=== PATIENT | male | born 1950 | race Caucasian/White ===

== ENCOUNTER 2019-07-31 11:53 | Observation (INO) | payer BC, OTHER ==
[2019-07-31] MEDS ORDERED: morphine CARPU-JECT 4 MG/1 ML DISP.SYRIN IVPUSH ONE (12:41)
[2019-07-31] MEDS ORDERED: morphine SULFATE 4 MG/ML VIAL ONE (13:05)
[2019-07-31 13:08] LABS: BASO % 1.3 % (0-2.0); EOS % 0.4 % (0-4.5); HEMATOCRIT 47.8 % (35.4-49); HEMOGLOBIN 16.4 GM/dL (11.7-16.9); LYMPH % 20.3 % (8-40); MCH 31.5 pg (25.7-33.7); MCHC 34.3 g/dl (32.0-35.9); MEAN CELL VOLUME 91.8 fl (80-96); MEAN PLT VOLUME 8.9 fl (7.5-11.1); MONO % 7.1 % (3.8-10.2); NEUT % 70.9 % (42.8-82.8); PLATELET COUNT 255 K/MM3 (134-434); RDW 13.8 % (11.9-15.9)
--- NOTE | 2019-07-31 13:08 | PDOC ---
History of Present Illness - General Chief Complaint: Pain Stated Complaint: RT LEG PAIN Time Seen by Provider: 07/31/19 12:13 History Source: Patient - History of Present Illness Occurred: reports: last week Severity: Yes: severe Lower Extremity Pain Location: right: leg Past History - Past Medical History Allergies/Adverse Reactions: Allergies Allergy/AdvReac Type Severity Reaction Status Date / Time No Known Allergies Allergy Verified 07/31/19 11:59 Home Medications: Ambulatory Orders Aspirin [ASA -] 81 mg PO DAILY 05/08/16 Anemia: No Asthma: Yes Cancer: Yes (LYMPHOMA) Cardiac Disorders: No CVA: No COPD: No CHF: No Dementia: No Diabetes: No GI Disorders: No Disorders: No HTN: No Hypercholesterolemia: No Kidney Stones: No Liver Disease: No Seizures: No Thyroid Disease: No - Surgical History Abdominal Surgery: Yes (HERNIA) GI Surgery: Yes (INTESTINE SX A BABY) - Reproductive History Testicular Surgery: No - Psycho Social/Smoking Cessation Hx Smoking History: Current every day smoker Have you smoked in the past 12 months: Yes Number of Cigarettes Smoked Daily: 20 Information on smoking cessation initiated: Yes 'Breaking Loose' booklet given: 05/08/16 Hx Alcohol Use: Yes Drug/Substance Use Hx: No Substance Use Type: Alcohol Hx Substance Use Treatment: Yes Review of Systems - Review of Systems Constitutional: No: Chills, Fever Respiratory: No: Shortness of Breath Cardiac (ROS): No: Chest Pain, Palpitations *Physical Exam - Vital Signs Last Vital Signs Temp Pulse Resp BP Pulse Ox 98.2 F 65 16 105/77 98 07/31/19 11:59 07/31/19 11:59 07/31/19 11:59 07/31/19 11:59 07/31/19 11:59 - Physical Exam Comments: 07/31/19 13:08 well nilay elderly male, ambulating w/ cane into ED General Appearance: Yes: Appropriately Dressed, Mild Distress HEENT: positive: Normal Voice Neck: positive: Supple Respiratory/Chest: positive: Lungs Clear, Normal Breath Sounds. negative: Respiratory Distress Cardiovascular: positive: Regular Rate, S1, S2 Extremity: positive: Other (RLE slightly cold to touch vs LLE, unable to palpate pedal pulses b/l, no ttp, no erythema, no swelling). negative: Tender, Swelling Integumentary: positive: Dry, Warm Neurologic: positive: Fully Oriented, Alert, Normal Mood/Affect ED Treatment Course - LABORATORY CBC & Chemistry Diagram: 07/31/19 12:55 07/31/19 12:55 - RADIOLOGY Radiology Studies Ordered: Category Date Time Status DUPLEX ART. LOWER COMPL US [US] Stat Ultrasound 07/31/19 12:41 Ordered DUPLEX VASCUL US-1 LEG [US] Stat Ultrasound 07/31/19 12:41 Ordered Medical Decision Making - Medical Decision Making 07/31/19 12:48 68-year-old male, ETOH abuse, tx for lymphoma remotely, PAD, s/p multiple angioplasties to b/l LE (b/l angioplasty~20 years ago in [employer], LLE angioplasty in 2010 at [facility]), on asa and plavix, here with severe right leg pain that started 1 week ago. States pain is located to right lower leg and foot, worse when bearing weight, now ambulating w/ cane. States he also felt his right foot go numb several days ago. No tingling or lower extremity weakness. Patient states he went to see Dr. Chano Estrella 4 days ago who added aspirin and prescribed tramadol which is not relieving pain per patient. States plan was for him to see a vascular doctor next week but pain has since gotten worse and was told by Dr. Estrella to come to ED per patient. Patient denies any shortness of breath chest pain or palpitations. No history of DVT see exam RLE pain Concern for claudication, less likely DVT H/o known PAD and s/p multiple angioplasties RLE slightly colder to touch vs LLE, unable to palpate pedal pulses b/l -pain control -vasc and arterial US -labs -vasc c/s -PMD to discuss dispo 07/31/19 15:07 RLE US read as no definite flow to common femoral, superficial femoral or posterior tibial arteries consistent with occlusion. Left leg Doppler read as no definite flow along the superficial femoral artery consistent with occlusion. No DVT seen. Case discussed with Dr. Chano Estrella who states he made Dr. Malone of vascular aware and states patient to be admitted to have angioplasty done Discharge - Discharge Information Problems reviewed: Yes Clinical Impression/Diagnosis: Arterial occlusion, lower extremity, Peripheral arterial disease Condition: Fair - Admission Yes - Follow up/Referral Referrals: Chano Estrella, RES [Primary Care Provider] - - Patient Discharge Instructions - Post Discharge Activity
[2019-07-31 13:14] LABS: INR 0.98 (0.83-1.09); PROTHROMBIN TIME (PATIENT) 11.6 SEC (9.7-13.0)
[2019-07-31 13:33] LABS: ALBUMIN 3.6 g/dl (3.4-5.0); BILIRUBIN,TOTAL 0.7 mg/dL (0.2-1); BLOOD UREA NITROGEN 9.2 mg/dL (7-18); CREATININE 0.9 mg/dL (0.55-1.3); POTASSIUM 3.5 mmol/L (3.5-5.1); TOT PROT 7.2 g/dl (6.4-8.2)
--- NOTE | 2019-07-31 16:50 | EKG ---
Test Reason : Blood Pressure : / mmHG Vent. Rate : 095 BPM Atrial Rate : 095 BPM P-R Int : 188 ms QRS Dur : 108 ms QT Int : 356 ms P-R-T Axes : -12 029 -46 degrees QTc Int : 447 ms SINUS RHYTHM WITH FREQUENT and consecutive PREMATURE VENTRICULAR COMPLEXES INFERIOR INFARCT (CITED ON OR BEFORE 08-MAY-2016) ANTERIOR INFARCT (CITED ON OR BEFORE 08-MAY-2016) ABNORMAL ECG WHEN COMPARED WITH ECG OF 08-MAY-2016 08:15, PREMATURE ATRIAL COMPLEXES ARE NO LONGER PRESENT T WAVE INVERSION NOW EVIDENT IN INFERIOR LEADS QT HAS SHORTENED Confirmed by BRITANY CLEMENTE MD ([id number]) on 07/31/2019 4:50:40 PM Referred By: Confirmed By:BRITANY CLEMENTE MD
--- NOTE | 2019-07-31 18:02 | HP ---
Admitting History and Physical - Admission Chief Complaint: rt leg pain scale 7weeks History of Present Illness: pt has h/o of lt leg ? fem pop sx History Source: Patient Limitations to Obtaining History: No Limitations - Past Surgical History Past Surgical History: Yes: None - Smoking History Smoking history: Current every day smoker Have you smoked in the past 12 months: Yes Aproximately how many cigarettes per day: 20 - Alcohol/Substance Use Hx Alcohol Use: Yes History of Substance Use: reports: None - Social History Usual Living Arrangement: Yes: Alone ADL: Independent History of Recent Travel: No Home Medications - Allergies Allergies/Adverse Reactions: Allergies Allergy/AdvReac Type Severity Reaction Status Date / Time No Known Allergies Allergy Verified 07/31/19 11:59 - Home Medications Home Medications: Ambulatory Orders Aspirin [ASA -] 81 mg PO DAILY 05/08/16 Family Medical History Family History: Unremarkable Review of Systems - Review of Systems Constitutional: reports: Other (rt leg pain) Eyes: reports: No Symptoms HENT: reports: No Symptoms Neck: reports: No Symptoms Cardiovascular: reports: No Symptoms Respiratory: reports: No Symptoms Gastrointestinal: reports: No Symptoms Genitourinary: reports: No Symptoms Breasts: reports: No Symptoms Reported Musculoskeletal: reports: Extremity Pain, Muscle Weakness Neurological: reports: No Symptoms Endocrine: reports: No Symptoms Hematology/Lymphatic: reports: No Symptoms Psychiatric: reports: No Symptoms Pain Intensity: 7 Physical Examination Vital Signs: Vital Signs Temperature 98.2 F 07/31/19 11:59 Pulse Rate 65 07/31/19 11:59 Respiratory Rate 16 07/31/19 11:59 Blood Pressure 105/77 07/31/19 11:59 O2 Sat by Pulse Oximetry (%) 98 07/31/19 11:59 Constitutional: Yes: Well Nourished Eyes: Yes: WNL HENT: Yes: WNL Neck: Yes: WNL Cardiovascular: Yes: WNL Respiratory: Yes: WNL Gastrointestinal: Yes: WNL ...Rectal Exam: Yes: Deferred Renal/: Yes: WNL Breast(s): Yes: WNL Musculoskeletal: Yes: WNL Extremities: Yes: Cool, Delayed Capillary Refill Edema: No Peripheral Pulses WNL: No Peripheral Pulses: Left Femoral: 1+, Right Femoral: 1+ Integumentary: Yes: WNL Neurological: Yes: WNL ...Motor Strength: WNL Psychiatric: Yes: WNL Labs: CBC, BMP 07/31/19 12:55 07/31/19 12:55 Assessment/Plan asa po plavix po percocet for pain npo after mid ? sx w dr eric
[2019-07-31 20:49] VITALS: BMI 23.6
[2019-08-01] MEDS ORDERED: oxyCODONE HCL 5 MG TABLET PO PRN (00:18)
[2019-08-01] MEDS ORDERED: ACETAMINOPHEN 325 MG TABLET (FP) PO PRN ×2 (00:18)
[2019-08-01] MEDS: oxyCODONE HCL 5 MG TABLET PO PRN ×3 (01:24→18:26)
[2019-08-01 08:23] LABS: BASO % 0.4 % (0-2.0); HEMATOCRIT 45.6 % (35.4-49); HEMOGLOBIN 15.5 GM/dL (11.7-16.9); LYMPH % 24.3 % (8-40); MCH 31.3 pg (25.7-33.7); MEAN CELL VOLUME 92.2 fl (80-96); MEAN PLT VOLUME 9.6 fl (7.5-11.1); NEUT % 66.3 % (42.8-82.8); PLATELET COUNT 249 K/MM3 (134-434); RBC 4.94 M/mm3 (4.00-5.60); RDW 13.8 % (11.9-15.9); WHITE BLOOD COUNT 13.9 K/mm3 (4.0-10.0)
[2019-08-01 08:47] LABS: ALBUMIN 3.3 g/dl (3.4-5.0); BILIRUBIN,TOTAL 0.6 mg/dL (0.2-1); CALCIUM 8.8 mg/dL (8.5-10.1); CREATININE 0.8 mg/dL (0.55-1.3); POTASSIUM 3.5 mmol/L (3.5-5.1); TOT PROT 6.7 g/dl (6.4-8.2)
--- NOTE | 2019-08-01 09:24 | PN ---
Progress Note (short form) - Note Progress Note: Vascular Surgery 68 year old male that is a current smoker comes in with one week history of Right lower extremity pain. He says he has a lot of pain at rest. Pt has had surgery on both his right and left leg in the past at another institution. PE Head - NC/AT Lung - CTA Heart - RRR abd - soft, nt/nd ext - right lower extremity pale, cool to touch for one week. Pt has motor and sensory intact. NO rest pain currently. A/P Right leg ischemia for over one week. Pt is a current smoker. Arterial duplex shows HARNESS TIER,SFA occlusion. CTA ordered aorta, bl lower ext runoff . Lovenox 70mg SQ bid started on pt. Arsh Malone DO
--- NOTE | 2019-08-01 09:50 | PN ---
Progress Note, Physician Chief Complaint: less pain legs no other complaints poor historian - Current Medication List Current Medications: Active Medications Acetaminophen (Tylenol -) 325 mg PO Q4H PRN PRN Reason: PAIN LEVEL 1-5 Stop: 08/04/19 00:17 Last Admin: 08/01/19 01:25 Dose: 325 mg Acetaminophen (Tylenol -) 325 mg PO Q6H PRN PRN Reason: PAIN LEVEL 1-5 Aspirin (Ecotrin -) 81 mg PO DAILY [facility] Clopidogrel Bisulfate (Plavix -) 75 mg PO DAILY [facility] Enoxaparin Sodium (Lovenox -) 70 mg SQ BID [facility] Oxycodone HCl (Roxicodone -) 5 mg PO Q4H PRN PRN Reason: PAIN LEVEL 1-5 Last Admin: 08/01/19 01:24 Dose: 5 mg Oxycodone HCl (Roxicodone -) 5 mg PO Q6H PRN PRN Reason: PAIN LEVEL 1-5 - Objective Vital Signs: Vital Signs Temperature 98.2 F 08/01/19 08:07 Pulse Rate 76 08/01/19 08:07 Respiratory Rate 16 08/01/19 08:07 Blood Pressure 104/63 08/01/19 08:07 O2 Sat by Pulse Oximetry (%) 97 08/01/19 01:56 Constitutional: Yes: No Distress Eyes: Yes: WNL HENT: Yes: WNL Neck: Yes: WNL Cardiovascular: Yes: WNL, Other Gastrointestinal: Yes: WNL ...Rectal Exam: Yes: Deferred Genitourinary: Yes: WNL Breast(s): Yes: WNL Musculoskeletal: Yes: WNL Extremities: Yes: Delayed Capillary Refill Edema: No Peripheral Pulses WNL: Yes Peripheral Pulses: Left Femoral: 1+, Right Femoral: 1+ Integumentary: Yes: WNL Wound/Incision: Yes: Clean/Dry Neurological: Yes: WNL ...Motor Strength: WNL Psychiatric: Yes: WNL Labs: CBC, BMP 08/01/19 07:25 08/01/19 07:25 INR, PTT INR 0.98 (0.83-1.09) 07/31/19 12:55 Assessment/Plan shiva ct angio legs better deleniate blood flow feed pt npo mn? sx in am?? cont all tx as is cleared for sx
[2019-08-01] MEDS ORDERED: ASPIRIN COATED 81 MG TABLET.EC PO SCH (10:00)
[2019-08-01] MEDS ORDERED: CLOPIDOGREL BISULFATE 75 MG TABLET (FP) PO SCH (10:00)
[2019-08-01] MEDS: ENOXAPARIN NA (PORCINE) 80 MG/0.8 ML DISP.SYRIN SQ SCH ×2 (10:13→21:55)
--- NOTE | 2019-08-01 10:52 | PN ---
Progress Note, Physician Chief Complaint: agree w transfer to [facility] due to fam reqest and numerous abd aortic bypass sx [facility] fem aterys dr eric to start [facility] - Current Medication List Current Medications: Active Medications Acetaminophen (Tylenol -) 325 mg PO Q4H PRN PRN Reason: PAIN LEVEL 1-5 Stop: 08/04/19 00:17 Last Admin: 08/01/19 01:25 Dose: 325 mg Acetaminophen (Tylenol -) 325 mg PO Q6H PRN PRN Reason: PAIN LEVEL 1-5 Aspirin (Ecotrin -) 81 mg PO DAILY [facility] Last Admin: 08/01/19 10:13 Dose: 81 mg Clopidogrel Bisulfate (Plavix -) 75 mg PO DAILY [facility] Last Admin: 08/01/19 10:13 Dose: 75 mg Enoxaparin Sodium (Lovenox -) 70 mg SQ BID [facility] Last Admin: 08/01/19 10:13 Dose: 70 mg Oxycodone HCl (Roxicodone -) 5 mg PO Q4H PRN PRN Reason: PAIN LEVEL 1-5 Last Admin: 08/01/19 01:24 Dose: 5 mg Oxycodone HCl (Roxicodone -) 5 mg PO Q6H PRN PRN Reason: PAIN LEVEL 1-5 - Objective Vital Signs: Vital Signs Temperature 98.2 F 08/01/19 08:07 Pulse Rate 76 08/01/19 08:07 Respiratory Rate 16 08/01/19 08:07 Blood Pressure 104/63 08/01/19 08:07 O2 Sat by Pulse Oximetry (%) 97 08/01/19 01:56 Labs: CBC, BMP 08/01/19 07:25 08/01/19 07:25 INR, PTT INR 0.98 (0.83-1.09) 07/31/19 12:55
--- NOTE | 2019-08-01 16:47 | PN ---
Progress Note (short form) - Note Progress Note: Vascular Surgery Spoke to family at length. Pt has had all his interventions at [place] by Dr. Hunt. I spoke to Crystal (REY) in their office and she will start the transfer to a hospital bed. Pt and family both understand and are very happy. Continue Lovenox injections. Arsh Malone DO
[2019-08-01 23:04] VITALS: BP 108/52; PULSE 88; TEMP 98.4
== END 2019-08-02 01:10 | disposition short-term general hospital (02) | DRG 301 ==
LOC: JERFT 11:53 → INTOOBSV 15:06 → UNDOADMOB 15:06 → JERBED 15:06 → UNDOADMIN 15:06 → J6S 15:06 → JERBED 17:44 → J6S 17:44 → UNDODISOB 08-02 01:10
PROVIDERS: ADMIT Family Medicine; ATTEND Surgery Vascular Surgery
DX: I73.9 Peripheral vascular disease, unspecified (principal); F10.10 Alcohol abuse, uncomplicated; F17.210 Nicotine dependence, cigarettes, uncomplicated
CPT/HCPCS: 36415; 71045-TC-FY; 71046-TC-FY; 75635-TC; 80053; 85025; 85610; 86850; 86900; 86901; 93005; 93010; 93925-TC; 93971-TC; 99282-25; G0378

== ENCOUNTER 2022-05-31 16:27 | Inpatient (IN) | payer BC, OTHER ==
[2022-05-31] MEDS ORDERED: SODIUM CHLORIDE 2,041 ML IV ONE (17:04)
[2022-05-31 17:23] LABS: VENOUS BASE EXCESS -0.9 mmol/L (-2-2); VENOUS O2 SATURATION 76.8 % (70-80); VENOUS PCO2 36.9 mmHg (38-52); VENOUS PH 7.417 (7.310-7.410)
[2022-05-31 17:40] LABS: BASO % 0.1 % (0-2.0); EOS % 0.1 % (0-4.5); HEMATOCRIT 32.6 % (35.4-49); HEMOGLOBIN 10.9 GM/dL (11.7-16.9); LYMPH % 3.6 % (8-40); MCH 28.2 pg (25.7-33.7); MCHC 33.4 g/dl (32.0-35.9); MEAN CELL VOLUME 84.4 fl (80-96); MEAN PLT VOLUME 7.7 fl (7.5-11.1); MONO % 3.6 % (3.8-10.2); NEUT % 92.6 % (42.8-82.8); PLATELET COUNT 480 10^3/uL (134-434); RBC 3.86 M/mm3 (4.00-5.60); RDW 16.1 % (11.9-15.9); WHITE BLOOD COUNT 26.3 K/mm3 (4.0-10.0)
[2022-05-31 17:43] LABS: INR 1.69 (0.83-1.09); PROTHROMBIN TIME (PATIENT) 19.5 SEC (9.7-13.0)
[2022-05-31] MEDS ORDERED: PIPERACILLIN/TAZOB 3.375 GM 3.375 GM in DEXTROSE 5%-WATER - 50 ML IVPB ONE (17:45)
[2022-05-31] MEDS ORDERED: VANCOMYCIN 1 GM in D5W (PRE-DOCKED) 1,000 MG/250 ML IVPB ONE (17:45)
[2022-05-31 17:46] LABS: ACTIVATED PTT 36.5 SECONDS (25.2-36.5)
[2022-05-31] MEDS ORDERED: PIPERACILLIN/TAZOB 3.375 GM 3.375 GM/50 ML BAG IVPB ONE (17:49)
[2022-05-31] MEDS ORDERED: VANCOMYCIN/WATER FOR INJ (PEG) 1,000 MG/200 ML BAG IVPB ONE (17:49)
[2022-05-31 17:55] LABS: PH,URINE 6.5 (5.0-8.0); URINE APPEARANCE CLEAR; URINE BILIRUBIN NEGATIVE (NEGATIVE); URINE COLOR YELLOW; URINE GLUCOSE (UA) NEGATIVE (NEGATIVE); URINE KETONE NEGATIVE (NEGATIVE); URINE LEUK ESTERASE NEGATIVE (NEGATIVE); URINE NITRITE NEGATIVE (NEGATIVE); URINE PROTEIN NEGATIVE (NEGATIVE)
[2022-05-31 17:58] LABS: ALBUMIN 3.2 g/dl (3.4-5.0); BLOOD UREA NITROGEN 7.3 mg/dL (7-18); CALCIUM 8.2 mg/dL (8.5-10.1)
[2022-05-31 18:00] LABS: CREATININE 0.8 mg/dL (0.55-1.3)
[2022-05-31 18:03] LABS: TOT PROT 6.7 g/dl (6.4-8.2)
[2022-05-31 18:17] LABS: ANISOCYTOSIS 3+; MACROCYTOSIS 0; TARGET CELLS 1+; TEAR DROP CELLS 1+
[2022-06-01] MEDS: INSULIN SLIDING SCALE (NOVOLOG) 1 VIAL SQ SCH ×4 (06:18→22:04)
[2022-06-01] MEDS ORDERED: ALBUTEROL SO4 HFA INHALER IH PRN (06:56)
[2022-06-01 07:05] VITALS: BMI 25.5
[2022-06-01] MEDS ORDERED: metFORMIN HCL 500 MG TABLET (FP) PO SCH (07:30)
[2022-06-01] MEDS ORDERED: PIPERACILLIN/TAZOB 3.375 GM 3.375 GM in DEXTROSE 5%-WATER - 50 ML IVPB SCH (10:00)
[2022-06-01 10:32] LABS: ALBUMIN 2.9 g/dl (3.4-5.0); BLOOD UREA NITROGEN 6.7 mg/dL (7-18); CALCIUM 8.3 mg/dL (8.5-10.1)
[2022-06-01 10:33] LABS: BASO % 0.4 % (0-2.0); EOS % 0.5 % (0-4.5); HEMATOCRIT 32.5 % (35.4-49); HEMOGLOBIN 10.6 GM/dL (11.7-16.9); LYMPH % 5.1 % (8-40); MCH 27.8 pg (25.7-33.7); MCHC 32.5 g/dl (32.0-35.9); MEAN CELL VOLUME 85.4 fl (80-96); MEAN PLT VOLUME 8.3 fl (7.5-11.1); MONO % 4.7 % (3.8-10.2); NEUT % 89.3 % (42.8-82.8); PLATELET COUNT 456 10^3/uL (134-434); WHITE BLOOD COUNT 15.3 K/mm3 (4.0-10.0)
[2022-06-01 10:36] LABS: CREATININE 0.7 mg/dL (0.55-1.3); PHOSPHOROUS 2.5 mg/dL (2.5-4.9)
[2022-06-01 10:37] LABS: TOT PROT 6.4 g/dl (6.4-8.2)
[2022-06-01 10:38] LABS: BILIRUBIN,TOTAL 0.6 mg/dL (0.2-1)
[2022-06-01] MEDS: ASPIRIN 81 MG CHEWABLE TABLETS PO SCH (11:29)
[2022-06-01] MEDS: FOLIC ACID 1 MG TABLET (FP) PO SCH (11:29)
[2022-06-01] MEDS: APIXABAN 5 MG TABLET PO SCH ×2 (11:30→21:55)
[2022-06-01] MEDS: PIPERACILLIN/TAZOB 3.375 GM 3.375 GM in DEXTROSE 5%-WATER - 50 ML IVPB SCH ×2 (11:30→18:22)
[2022-06-01] MEDS: PANTOPRAZOLE 40 MG TABLET PO SCH (11:30)
[2022-06-01] MEDS: THIAMINE HCL 100 MG TABLET (FP) PO SCH ×2 (11:30→21:55)
[2022-06-01] MEDS: VANCOMYCIN/WATER FOR INJ (PEG) 1,000 MG/200 ML BAG IVPB SCH (21:54)
[2022-06-01] MEDS ORDERED: ROSUVASTATIN CA 20 MG TABLET PO SCH (22:00)
[2022-06-02] MEDS: PIPERACILLIN/TAZOB 3.375 GM 3.375 GM in DEXTROSE 5%-WATER - 50 ML IVPB SCH (01:50)
[2022-06-02] MEDS: VANCOMYCIN/WATER FOR INJ (PEG) 1,000 MG/200 ML BAG IVPB SCH (05:55)
[2022-06-02] MEDS: INSULIN SLIDING SCALE (NOVOLOG) 1 VIAL SQ SCH ×4 (06:59→21:13)
[2022-06-02] MEDS: FOLIC ACID 1 MG TABLET (FP) PO SCH (09:38)
[2022-06-02] MEDS: PANTOPRAZOLE 40 MG TABLET PO SCH (09:38)
[2022-06-02] MEDS: APIXABAN 5 MG TABLET PO SCH ×2 (09:39→21:14)
[2022-06-02] MEDS: THIAMINE HCL 100 MG TABLET (FP) PO SCH ×2 (09:39→21:14)
[2022-06-02] MEDS: ASPIRIN 81 MG CHEWABLE TABLETS PO SCH (09:41)
[2022-06-02] MEDS ORDERED: PIPERACILLIN/TAZOB 3.375 GM 3.375 GM in DEXTROSE 5%-WATER - 50 ML IVPB SCH (10:00)
[2022-06-02 12:41] LABS: BASO % 0.7 % (0-2.0); EOS % 0.7 % (0-4.5); HEMATOCRIT 35.4 % (35.4-49); HEMOGLOBIN 11.3 GM/dL (11.7-16.9); LYMPH % 12.4 % (8-40); MCH 27.1 pg (25.7-33.7); MCHC 31.8 g/dl (32.0-35.9); MEAN CELL VOLUME 85.4 fl (80-96); MEAN PLT VOLUME 8.5 fl (7.5-11.1); MONO % 6.8 % (3.8-10.2); NEUT % 79.4 % (42.8-82.8); PLATELET COUNT 479 10^3/uL (134-434); RBC 4.15 M/mm3 (4.00-5.60); RDW 16.2 % (11.9-15.9); WHITE BLOOD COUNT 9.4 K/mm3 (4.0-10.0)
[2022-06-02 13:07] LABS: CALCIUM 8.4 mg/dL (8.5-10.1)
[2022-06-02 13:08] LABS: BLOOD UREA NITROGEN 10.7 mg/dL (7-18)
[2022-06-02 13:11] LABS: CREATININE 0.9 mg/dL (0.55-1.3)
[2022-06-02 13:12] LABS: BILIRUBIN,TOTAL 0.3 mg/dL (0.2-1); TOT PROT 6.7 g/dl (6.4-8.2)
[2022-06-02] MEDS: PATIENT'S OWN MEDICATION (NON-FORMULARY) (Bisoprolol Fumarate [Bisoprolol Fumarate] 5 MG T PO SCH (15:38)
[2022-06-02] MEDS: [UNRECOGNIZED DRUG - OTHER] PO SCH (15:38)
[2022-06-02] MEDS ORDERED: POLYETHYLENE GLYCOL (HEALTHYLAX) 3350 17 GM PACKET PO ONE (18:15)
[2022-06-03] MEDS: INSULIN SLIDING SCALE (NOVOLOG) 1 VIAL SQ SCH ×4 (06:00→21:06)
[2022-06-03 09:21] LABS: HEMATOCRIT 35.7 % (35.4-49); HEMOGLOBIN 11.7 GM/dL (11.7-16.9); MCH 27.7 pg (25.7-33.7); MCHC 32.9 g/dl (32.0-35.9); MEAN CELL VOLUME 84.4 fl (80-96); MEAN PLT VOLUME 8.2 fl (7.5-11.1); PLATELET COUNT 463 10^3/uL (134-434); RBC 4.23 M/mm3 (4.00-5.60); RDW 15.9 % (11.9-15.9); WHITE BLOOD COUNT 8.4 K/mm3 (4.0-10.0)
[2022-06-03 09:54] LABS: CALCIUM 9.1 mg/dL (8.5-10.1)
[2022-06-03 09:55] LABS: BLOOD UREA NITROGEN 12.3 mg/dL (7-18); MAGNESIUM 2.1 mg/dL (1.8-2.4)
[2022-06-03 09:57] LABS: CREATININE 0.8 mg/dL (0.55-1.3); PHOSPHOROUS 3.7 mg/dL (2.5-4.9)
[2022-06-03 09:58] LABS: BILIRUBIN,TOTAL 0.6 mg/dL (0.2-1)
[2022-06-03] MEDS: THIAMINE HCL 100 MG TABLET (FP) PO SCH ×2 (10:15→21:06)
[2022-06-03] MEDS: PANTOPRAZOLE 40 MG TABLET PO SCH (10:15)
[2022-06-03] MEDS: ALPRAZolam 0.25 MG TABLET PO PRN (10:15)
[2022-06-03] MEDS: ASPIRIN 81 MG CHEWABLE TABLETS PO SCH (10:15)
[2022-06-03] MEDS: FOLIC ACID 1 MG TABLET (FP) PO SCH (10:15)
[2022-06-03] MEDS: APIXABAN 5 MG TABLET PO SCH ×2 (10:15→21:06)
[2022-06-04] MEDS: INSULIN SLIDING SCALE (NOVOLOG) 1 VIAL SQ SCH ×3 (06:01→18:30)
[2022-06-04 07:14] VITALS: RESP 20
[2022-06-04] MEDS: ASPIRIN 81 MG CHEWABLE TABLETS PO SCH (09:43)
[2022-06-04] MEDS: FOLIC ACID 1 MG TABLET (FP) PO SCH (09:43)
[2022-06-04] MEDS: PANTOPRAZOLE 40 MG TABLET PO SCH (09:43)
[2022-06-04] MEDS: THIAMINE HCL 100 MG TABLET (FP) PO SCH (09:43)
[2022-06-04] MEDS: APIXABAN 5 MG TABLET PO SCH (09:44)
[2022-06-04] MEDS: ALPRAZolam 0.25 MG TABLET PO PRN (09:55)
[2022-06-04] MEDS ORDERED: SODIUM CHLORIDE 500 ML IV STA (09:58)
[2022-06-04] MEDS ORDERED: POLYETHYLENE GLYCOL (HEALTHYLAX) 3350 17 GM PACKET PO SCH (10:00)
[2022-06-04 14:45] LABS: BASO % 0.8 % (0-2.0); EOS % 1.6 % (0-4.5); HEMATOCRIT 33.7 % (35.4-49); LYMPH % 22.7 % (8-40); MCH 27.7 pg (25.7-33.7); MCHC 32.5 g/dl (32.0-35.9); MEAN CELL VOLUME 85.1 fl (80-96); MEAN PLT VOLUME 8.3 fl (7.5-11.1); MONO % 15.5 % (3.8-10.2); NEUT % 59.4 % (42.8-82.8); PLATELET COUNT 420 10^3/uL (134-434); RBC 3.96 M/mm3 (4.00-5.60); RDW 16.1 % (11.9-15.9); WHITE BLOOD COUNT 8.4 K/mm3 (4.0-10.0)
[2022-06-04 15:15] LABS: ALBUMIN 2.9 g/dl (3.4-5.0); BLOOD UREA NITROGEN 13.9 mg/dL (7-18); CALCIUM 8.5 mg/dL (8.5-10.1)
[2022-06-04 15:18] LABS: CREATININE 0.8 mg/dL (0.55-1.3)
[2022-06-04 15:20] LABS: BILIRUBIN,TOTAL 0.2 mg/dL (0.2-1); TOT PROT 6.4 g/dl (6.4-8.2)
[2022-06-04 18:35] VITALS: BP 108/70; PULSE 76; TEMP 98
== END 2022-06-04 19:00 | disposition home or self-care (01) | DRG 433 ==
LOC: JER 16:27 → JERBED 06-01 00:44 → J5S 06-01 05:54
PROVIDERS: ADMIT Internal Medicine
DX: K70.10 Alcoholic hepatitis without ascites (principal); E87.1 Hypo-osmolality and hyponatremia; D72.829 Elevated white blood cell count, unspecified; R74.01 Elevation of levels of liver transaminase levels; I10 Essential (primary) hypertension; E78.5 Hyperlipidemia, unspecified; E11.9 Type 2 diabetes mellitus without complications; R10.11 Right upper quadrant pain; F41.9 Anxiety disorder, unspecified; F10.10 Alcohol abuse, uncomplicated; D50.9 Iron deficiency anemia, unspecified; K83.8 Other specified diseases of biliary tract; I73.9 Peripheral vascular disease, unspecified; F17.210 Nicotine dependence, cigarettes, uncomplicated
CPT/HCPCS: 0241U-QW; 36415; 71045-TC-FY; 71275-TC; 74174-TC; 76705-TC; 80053; 81003; 82550; 82553; 82607; 82728; 82803; 82962; 83036; 83540; 83550; 83605; 83735; 84100; 84443; 84484; 85025; 85027; 85045; 85610; 85730; 86704; 86803; 86850; 86900; 86901; 87040; 87086; 87340; 87517; 93005; 93010; 97116-GP; 97161-GP; 99285-25; Q9967